=== PATIENT | male | born 2000 | race Two or more races ===

== ENCOUNTER 2024-09-15 14:02 | Emergency (ER) | payer MEDICAID, SELFPAY ==
[2024-09-15 14:15] VITALS: BP 127/79; PULSE 80; RESP 18; TEMP 37.1; O2SAT 99; BMI 29.0
--- NOTE | 2024-09-15 14:20 | XR_ITS ---
Examination: Hand, right 3 views Technique: Hand AP, oblique, lateral 3 views Date and time of exam: September 15, 2024 1428 hours INDICATIONS: Puncture injury to the hand 2 days ago, hand pain FINDINGS: Old appearing deformity distal fifth metacarpal No definite acute fracture No opaque foreign body IMPRESSION: No opaque foreign body Old appearing deformity distal fifth metacarpal but clinical correlation advised
[2024-09-15] MEDS: IBUPROFEN TAB 600 MG TABLET PO (14:30)
[2024-09-15] MEDS: HYDROcodone/APAP 5/325 TABLET 1 TAB PO (14:30)
--- NOTE | 2024-09-15 14:44 | PD.EDHAND ---
Upper Extremity Injury RME/HPI General Chief Complaint: Hand/Wrist Problems Stated Complaint: Right hand swelling X 2 days Time Seen by Provider: 09/15/24 14:10 Arrival date/time: 09/15/24 14:02 RME / HPI RME / HPI narrative: DR. ALEXANDER MAIN ED EVALUATION: 24-year-old male with past medical history significant for asthma patient complaining of right hand pain. Patient states last night at [place] he was spending time with his family and they challenged each other to punch a 2x4 to try and break it. Now c/o right hand pain and swelling. Able to move. Related Data Previous Rx's ?Medication ?Instructions ?Recorded ibuprofen 800 mg tablet 800 mg PO TID PRN pain #30 tabs 09/07/18 albuterol sulfate 90 mcg/actuation 2 puff inhalation QID PRN 08/20/22 aerosol inhaler shortness of breath or wheezing #8.5 grams famotidine 20 mg tablet (Pepcid) 20 mg PO QHS #30 tabs 08/20/22 omeprazole 20 mg capsule,delayed 20 mg PO QDAY 30 days #30 caps 08/20/22 release ibuprofen 600 mg tablet 600 mg PO Q6H PRN pain #30 tabs 09/15/24 Allergies Allergy/AdvReac Type Severity Reaction Status Date / Time No Known Allergies Allergy Verified 08/20/22 13:50 Review of Systems Review of Systems Systems Reviewed: All systems reviewed, normal except as documented Narrative Review of Systems: GEN: No fever, no chills, no weight loss EYES: No discharge, no visual changes, no pain HEENT: No ear pain, no congestion, no sore throat PULM: No shortness of breath, no cough, no congestion CV: No chest pain, no dyspnea on exertion, no palpitations GI: No nausea, no vomiting, no diarrhea, no pain, no constipation : No frequency, no urgency and no dysuria MUSC/SKEL: + right hand pain, no back pain SKIN: No rash PSYCH: No hallucinations, no depression HEME/LYMPH: No easy bleeding or bruising tendencies NEURO: No weakness, no headache Past Medical History Past Medical History CARDIAC: Negative Cardiac Disorders or Congestive Heart Failure RESPIRATORY: Positive Asthma; Negative Chronic Obstructive Pulmonary Disease (COPD) GENITOURINARY: Negative Renal Disease ENDOCRINE: Negative Diabetes Mellitus Type 1 or Diabetes Mellitus Type 2 HEMATOLOGIC: Negative Sickle Cell Disease Social History SMOKING STATUS: Never smoker ED Exam Narrative Physical exam: GENERAL APPEARANCE: alert and oriented x 4, well-developed, well-nourished, no acute distress VITALS: All vitals were reviewed and the pulse ox is 99% on room air, which is normal according to my interpretation. HEENT: Normocephalic, atraumatic; pupils equal, round, reactive to light; EOMI; mucous membranes pink, moist; oropharynx clear NECK: Supple LUNGS: CTABL; no wheezes, no rales, no rhonchi HEART: Regular rate, regular rhythm; normal S1, S2; no murmurs ABDOMEN: non distended; normal BS; soft, no tenderness, no guarding, no rebound; no masses, no organomegaly, no hernia BACK: no CVA tenderness EXTREMITIES: right hand moderate edema, erythema, overlying third metacarpal, no deformity, full range of motion NEUROLOGIC: awake; alert and oriented x4; cranial nerves II-XII grossly intact; no focal sensory or motor deficits PSYCHIATRIC: appropriate mood and affect SKIN: warm, dry, normal color; no rashes Course Quality Measures none Orders Category Date Time Status XR hand comp RT min 3V Stat Exams 09/15/24 14:20 Completed HYDROcodone*/APAP 5/325 [[place] 5/325] Med 09/15/24 14:19 Discontinued 1 tab PO X1 ONE Ibuprofen Tab [Motrin Tab] Med 09/15/24 14:19 Discontinued 600 mg PO X1 ONE Vital Signs Vital signs: Vital Signs Temperature 98.7 F 09/15/24 14:15 Pulse Rate 80 09/15/24 14:15 Respiratory Rate 18 09/15/24 14:15 Blood Pressure 127/79 09/15/24 14:15 Pulse Oximetry (%) 99 09/15/24 14:15 Oxygen Delivery Method Room Air 09/15/24 14:15 Extremity Injury MDM Narrative MDM Narrative:: I, Marisa Reyes am scribing for and in the presence of Dr. Alexander. Patient data External records reviewed:: [facility] previous records (Reviewed last ED visit dated 09/07/18, discharged with the following: Fracture of wrist.) Clinical information provided by:: patient Social determinants that could affect healthcare access:: none Patient has the following chronic illnesses:: Asthma How is presenting disease/condition affected by chronic disease/condition?: uneffected by Evaluation data The following diagnostics were reviewed and interpreted by me:: radiology exam(s) Lab and/or radiology exams considered but not ordered:: none Interpretation Summary: Procedure(s): XR hand comp RT min 3V Accession Number(s): [id number] cc: Calixto Quintero MD; Janae Alexander MD~ Examination: Hand, right 3 views Technique: Hand AP, oblique, lateral 3 views Date and time of exam: September 15, 2024 1428 hours INDICATIONS: Puncture injury to the hand 2 days ago, hand pain FINDINGS: Old appearing deformity distal fifth metacarpal No definite acute fracture No opaque foreign body IMPRESSION: No opaque foreign body Old appearing deformity distal fifth metacarpal but clinical correlation advised Dictated By: Calixto Quintero MD Medications / Prescriptions Medications or Prescriptions considered but not ordered:: none Medication administrations:: Medication Administration History Discontinued Medications Hydrocodone Bitart/Acetaminophen (Hydrocodone/Apap 5/325 Tablet) 1 tab PO X1 ONE Stop: 09/15/24 14:20 Last Admin: 09/15/24 14:30 Dose: 1 tab Documented By: Ibuprofen (Ibuprofen Tab 600 Mg Tablet) 600 mg PO X1 ONE Stop: 09/15/24 14:20 Last Admin: 09/15/24 14:30 Dose: 600 mg Documented By: see above Consultations Consultation(s) initiated? (list below): No Diagnosis Upper Extremity Injury Differential Diagnosis: sprain and strain of wrist, fracture of wrist, finger sprain and other (hand contusion) Most likely diagnosis given after review of the tests above:: Contusion of hand, right. Admission Indicated Admission indicated?: not indicated Admission Request Was there a request for admission?: No Disposition Plan Disposition Plan: Discharge Discharge Attestation Discharge Attestation: The patient and all family members were given an opportunity to ask questions and understood the discharge instructions. Discharge instructions specifically effects, indications for sooner follow up or return to the emergency department, and the expected course of current diagnosis. Patient condition: Stable Discharge Plan Plan Patient Disposition: HOME (Self Care) Patient condition on transfer: Stable Prescriptions/Referrals Prescriptions/Med Rec: New ibuprofen 600 mg tablet 600 mg PO Q6H PRN (Reason: pain) Qty: 30 0RF No Action famotidine [Pepcid] 20 mg tablet 20 mg PO QHS Qty: 30 1RF omeprazole 20 mg capsule,delayed release(DR/EC) 20 mg PO QDAY 30 Days Qty: 30 1RF Rx Instructions: Take 30 to 45 Minutes before breakfast albuterol sulfate 90 mcg/actuation HFA aerosol inhaler 2 puff inhalation QID PRN (Reason: shortness of breath or wheezing) Qty: 8.5 2RF ibuprofen 800 mg tablet 800 mg PO TID PRN (Reason: pain) Qty: 30 0RF Referrals: No Primary/Family,Physician [Primary Care Provider] - In 1 week Problem List Clinical Impression: Contusion of hand, right Patient/Caregiver Discharge Instructions Education Materials: ED Hand Contusion Print Language: Lebanese Stand Alone Forms: Katherine Award Info., Patient Portal Info Letter
== END 2024-09-15 15:52 | disposition home or self-care (01) ==
PROVIDERS: Emergency Provider Emergency Medicine
DX: S60.221A Contusion of right hand, initial encounter (principal); W22.8XXA Striking against or struck by other objects, initial encounter; Y93.89 Activity, other specified
CPT/HCPCS: 73130; 99283; A9270